=== PATIENT | female | born 1990 | race Caucasian/White ===

== ENCOUNTER 2017-07-17 13:14 | Emergency (ER) | payer SELFPAY ==
[~2017-07-17] VITALS: Ht 165.1 cm; Wt 54.0 kg
[~2017-07-17 13:14] MED LIST: SYNT50TA PO; ZOFR4TAB3 SL
[2017-07-17 13:16] VITALS: BP 106/59; PULSE 115; RESP 16; TEMP 98.7; O2SAT 97
== END 2017-07-17 15:31 | disposition left against medical advice (07) ==
LOC: NED 13:14
DX: J11.1 Influenza due to unidentified influenza virus with other respiratory manifestations (principal)
CPT/HCPCS: 99281